=== PATIENT | female | born 1970 | race Caucasian/White ===

== ENCOUNTER 2020-07-29 17:03 | Inpatient (IN) | payer BC ==
[~2020-07-29] VITALS: Ht 167.6 cm; Wt 78.0 kg
[2020-07-29 17:00] VITALS: BP 118/76
[2020-07-29 18:01] VITALS: BP 118/76
[2020-07-29 18:02] VITALS: BP 118/76
[2020-07-29] MEDS: PIPER-TAZ 3.375 GM 50 ML IV SCH (18:37)
[2020-07-29] MEDS: SODIUM CHLORIDE 0.9% 1000ML 1,000 ML IV SCH (18:37)
[2020-07-29 20:00] VITALS: BP 106/59
[2020-07-29] MEDS: ONDANSETRON HCL INJ 2MG/ML 2ML 2 MG/ML VIAL IV PRN (21:20)
[2020-07-29] MEDS: MORPHINE SULFATE INJ 4 MG/ML INJ 1ML IV PRN (21:20)
[2020-07-29] MEDS: PANTOPRAZOLE 40 MG 10ML VIAL IV SCH (22:00)
[2020-07-29 22:32] VITALS: BP 106/59
[2020-07-30] VITALS (7 sets, daily range): BP systolic 93–106; BP diastolic 58–68
[2020-07-30] MEDS: SODIUM CHLORIDE 0.9% 1000ML 1,000 ML IV SCH ×6 (00:20→23:01)
[2020-07-30] MEDS: PIPER-TAZ 3.375 GM 50 ML IV SCH ×4 (00:20→17:11)
[2020-07-30 05:35] LABS: BASOPHILS % 0.3 % (0.0-1.0); EOSINOPHILS % 0.3 % (0.0-6.0); HEMATOCRIT 39.9 % (34.2-44.1); HEMOGLOBIN 12.8 g/dL (12.0-16.0); LYMPHOCYTES # (AUTO) 1.1 (1.0-3.2); LYMPHOCYTES % 12.5 % (18.0-39.1); MEAN CORPUSCULAR HEMOGLOBIN 31.1 pg (28-32); MEAN CORPUSCULAR HGB CONC 32.1 g/dL (31-35); MEAN CORPUSCULAR VOLUME 96.8 fL (81-99); MONOCYTES # (AUTO) 0.7 (0.2-0.8); MONOCYTES % 8.2 % (4.4-11.3); NEUTROPHILS # (AUTO) 6.8 (2.1-6.9); NEUTROPHILS % 78.5 % (38.7-80.0); PLATELET COUNT 242 x10e3/uL (140-360); RED BLOOD COUNT 4.12 x10e6/uL (3.6-5.1)
[2020-07-30 06:08] LABS: ALANINE AMINOTRANSFERASE 45 IU/L (0-55); ALBUMIN 3.5 g/dL (3.5-5.0); ALBUMIN/GLOBULIN RATIO 1.8 (0.8-2.0); ALKALINE PHOSPHATASE 54 IU/L (40-150); ANION GAP 8.2 mmol/L (8-16); BLOOD UREA NITROGEN 8 mg/dL (7-26); BUN/CREATININE RATIO 9 (6-25); CALCIUM 7.8 mg/dL (8.4-10.2); CARBON DIOXIDE 24 mmol/L (22-29); CHLORIDE 109 mmol/L (98-107); CREATININE, SERUM 0.85 mg/dL (0.57-1.11); EST GLOMERULAR FILTRATION RATE > 60 ML/MIN (60-); GLUCOSE 97 mg/dL (74-118); POTASSIUM 4.2 mmol/L (3.5-5.1); SODIUM 137 mmol/L (136-145)
[2020-07-30] MEDS: ONDANSETRON HCL INJ 2MG/ML 2ML 2 MG/ML VIAL IV PRN ×3 (06:40→17:11)
[2020-07-30] MEDS: MORPHINE SULFATE INJ 4 MG/ML INJ 1ML IV PRN ×3 (06:40→17:11)
[2020-07-30] MEDS: PANTOPRAZOLE 40 MG 10ML VIAL IV SCH (08:07)
[2020-07-30] MEDS ORDERED: GADOBENATE DIMEGLUMINE 1 ML IV ONE (09:55)
[2020-07-30] MEDS ORDERED: SODIUM CHLORIDE 0.9% 50ML 50 ML ONE (09:55)
[2020-07-30] MEDS ORDERED: ACETAMINOPHEN 325 MG TAB PO ONE (19:58)
[2020-07-31] VITALS (9 sets, daily range): BP systolic 94–112; BP diastolic 58–69
[2020-07-31] MEDS: PIPER-TAZ 3.375 GM 50 ML IV SCH ×5 (00:03→23:46)
[2020-07-31] MEDS: SODIUM CHLORIDE 0.9% 1000ML 1,000 ML IV SCH ×4 (04:30→23:54)
[2020-07-31 05:06] LABS: BASOPHILS % 0.3 % (0.0-1.0); EOSINOPHILS % 0.2 % (0.0-6.0); HEMATOCRIT 36.9 % (34.2-44.1); LYMPHOCYTES # (AUTO) 0.7 (1.0-3.2); LYMPHOCYTES % 5.4 % (18.0-39.1); MEAN CORPUSCULAR HEMOGLOBIN 31.9 pg (28-32); MEAN CORPUSCULAR HGB CONC 32.5 g/dL (31-35); MEAN CORPUSCULAR VOLUME 98.1 fL (81-99); MONOCYTES % 7.6 % (4.4-11.3); NEUTROPHILS # (AUTO) 11.5 (2.1-6.9); NEUTROPHILS % 85.9 % (38.7-80.0); PLATELET COUNT 196 x10e3/uL (140-360); RED BLOOD COUNT 3.76 x10e6/uL (3.6-5.1)
[2020-07-31 05:26] LABS: ALANINE AMINOTRANSFERASE 35 IU/L (0-55); ALBUMIN 3.3 g/dL (3.5-5.0); ALBUMIN/GLOBULIN RATIO 1.4 (0.8-2.0); ALKALINE PHOSPHATASE 60 IU/L (40-150); ANION GAP 11.7 mmol/L (8-16); BLOOD UREA NITROGEN 5 mg/dL (7-26); BUN/CREATININE RATIO 6 (6-25); CALCIUM 7.6 mg/dL (8.4-10.2); CARBON DIOXIDE 18 mmol/L (22-29); CHLORIDE 110 mmol/L (98-107); CHOL/HDL RATIO 2.3 (3.0-3.6); CHOLESTEROL 124 MD/DL (0-199); CREATININE, SERUM 0.77 mg/dL (0.57-1.11); EST GLOMERULAR FILTRATION RATE > 60 ML/MIN (60-); GLUCOSE 72 mg/dL (74-118); HDL CHOLESTEROL 54 MG/DL (40-60); LIPASE 350 U/L (8-78); POTASSIUM 3.7 mmol/L (3.5-5.1); SODIUM 136 mmol/L (136-145)
[2020-07-31 05:43] LABS: LDL CHOLESTEROL 57 MG/DL (60-130); TRIGLYCERIDES 63 MG/DL (0-149)
[2020-07-31] MEDS ORDERED: ACETAMINOPHEN 325 MG TAB PO ONE (07:30)
[2020-07-31] MEDS: PANTOPRAZOLE 40 MG 10ML VIAL IV SCH (08:53)
[2020-07-31] MEDS: HYDROMORPHONE 1MG/1ML INJ IV PRN ×2 (11:11→14:37)
[2020-07-31] MEDS: ONDANSETRON HCL INJ 2MG/ML 2ML 2 MG/ML VIAL IV PRN ×2 (11:11→14:38)
[2020-07-31] MEDS ORDERED: PROPOFOL IV EMULSION 10 MG/ML 20 ML VIAL ONE (12:45)
[2020-07-31] MEDS ORDERED: GLYCOPYRROLATE INJ 0.2 MG/ML VIAL ONE (12:45)
[2020-07-31] MEDS ORDERED: DEXAMETHASONE SOD PHOS INJ 4 MG/ML VIAL ONE (12:45)
[2020-07-31] MEDS ORDERED: LIDOCAINE HCL 2% LOCAL INJ 5 ML SDV VIAL INJ ONE (12:45)
[2020-07-31] MEDS ORDERED: SEVOFLURANE INHAL SOLN 250 ML PEN BTL ONE (12:45)
[2020-07-31] MEDS ORDERED: ONDANSETRON HCL INJ 2MG/ML 2ML 2 MG/ML VIAL ONE (12:45)
[2020-07-31] MEDS ORDERED: KETOROLAC TROMETHAMINE 30 MG/ML VIAL ONE (12:45)
[2020-07-31] MEDS ORDERED: ROCURONIUM BROMIDE 10 MG/ML 5ML VIAL IV ONE (12:45)
[2020-07-31] MEDS ORDERED: NEOSTIGMINE 1 MG/ML 10ML VIAL ONE (12:45)
[2020-07-31] MEDS ORDERED: FENTANYL CITRATE/PF 100MCG/2 ML INJ ONE (13:47)
[2020-07-31] MEDS ORDERED: MIDAZOLAM HCL 2 MG/2 ML VIAL ONE (13:47)
[2020-07-31] MEDS ORDERED: IOPAMIDOL 300MG/ML 50ML INFUS..BTL IV ONE (16:26)
[2020-07-31] MEDS ORDERED: BUPIVACAINE 0.25% 30ML SDV INJ ONE (16:26)
[2020-08-01] VITALS (7 sets, daily range): BP systolic 94–108; BP diastolic 61–69
[2020-08-01] MEDS: SODIUM CHLORIDE 0.9% 1000ML 1,000 ML IV SCH ×2 (04:31→15:49)
[2020-08-01] MEDS: PIPER-TAZ 3.375 GM 50 ML IV SCH (05:43)
[2020-08-01 06:54] LABS: BASOPHILS % 0.1 % (0.0-1.0); HEMATOCRIT 35.3 % (34.2-44.1); HEMOGLOBIN 11.3 g/dL (12.0-16.0); LYMPHOCYTES # (AUTO) 0.7 (1.0-3.2); LYMPHOCYTES % 4.3 % (18.0-39.1); MEAN CORPUSCULAR HEMOGLOBIN 30.6 pg (28-32); MEAN CORPUSCULAR VOLUME 95.7 fL (81-99); MONOCYTES # (AUTO) 0.8 (0.2-0.8); MONOCYTES % 5.3 % (4.4-11.3); NEUTROPHILS # (AUTO) 13.9 (2.1-6.9); NEUTROPHILS % 89.5 % (38.7-80.0); PLATELET COUNT 197 x10e3/uL (140-360); RED BLOOD COUNT 3.69 x10e6/uL (3.6-5.1); RED CELL DISTRIBUTION WIDTH 12.6 % (11.7-14.4)
[2020-08-01 07:24] LABS: ALANINE AMINOTRANSFERASE 40 IU/L (0-55); ALBUMIN 3.2 g/dL (3.5-5.0); ALBUMIN/GLOBULIN RATIO 1.4 (0.8-2.0); ALKALINE PHOSPHATASE 117 IU/L (40-150); AMYLASE 284 U/L (25-125); ANION GAP 13.3 mmol/L (8-16); BLOOD UREA NITROGEN 6 mg/dL (7-26); BUN/CREATININE RATIO 8 (6-25); CALCIUM 7.9 mg/dL (8.4-10.2); CARBON DIOXIDE 17 mmol/L (22-29); CHLORIDE 111 mmol/L (98-107); CHOL/HDL RATIO 2.6 (3.0-3.6); CHOLESTEROL 120 MD/DL (0-199); CREATININE, SERUM 0.75 mg/dL (0.57-1.11); EST GLOMERULAR FILTRATION RATE > 60 ML/MIN (60-); GLUCOSE 92 mg/dL (74-118); HDL CHOLESTEROL 46 MG/DL (40-60); LDL CHOLESTEROL 63 MG/DL (60-130); LIPASE 64 U/L (8-78); POTASSIUM 4.3 mmol/L (3.5-5.1); SODIUM 137 mmol/L (136-145); TRIGLYCERIDES 54 MG/DL (0-149)
[2020-08-01] MEDS: PANTOPRAZOLE 40 MG 10ML VIAL IV SCH (09:22)
[2020-08-01] MEDS: MEROPENEM 1GM 100 ML IV SCH ×2 (10:25→17:51)
[2020-08-01] MEDS: HYDROCODONE/APAP 7.5MG-325MG 1 EA TAB PO PRN ×3 (11:52→22:20)
[2020-08-01] MEDS: SENNOSIDES 8.6 MG TAB PO SCH (17:51)
[2020-08-02] VITALS (9 sets, daily range): BP systolic 93–145; BP diastolic 56–73
[2020-08-02] MEDS: ONDANSETRON HCL INJ 2MG/ML 2ML 2 MG/ML VIAL IV PRN (00:38)
[2020-08-02] MEDS: HYDROMORPHONE 1MG/1ML INJ IV PRN (00:38)
[2020-08-02] MEDS: MEROPENEM 1GM 100 ML IV SCH ×3 (02:40→17:04)
[2020-08-02] MEDS: KETOROLAC TROMETHAMINE 30 MG/ML VIAL IV PRN ×4 (02:40→21:42)
[2020-08-02] MEDS: SODIUM CHLORIDE 0.9% 1000ML 1,000 ML IV SCH ×4 (05:47→20:22)
[2020-08-02 06:02] LABS: BASOPHILS % 0.2 % (0.0-1.0); EOSINOPHILS # (AUTO) 0.1 (0.0-0.4); EOSINOPHILS % 0.7 % (0.0-6.0); HEMATOCRIT 34.5 % (34.2-44.1); LYMPHOCYTES # (AUTO) 1.1 (1.0-3.2); LYMPHOCYTES % 7.9 % (18.0-39.1); MEAN CORPUSCULAR HEMOGLOBIN 30.6 pg (28-32); MEAN CORPUSCULAR HGB CONC 31.9 g/dL (31-35); MEAN CORPUSCULAR VOLUME 96.1 fL (81-99); MONOCYTES # (AUTO) 1.5 (0.2-0.8); MONOCYTES % 10.3 % (4.4-11.3); NEUTROPHILS # (AUTO) 11.6 (2.1-6.9); NEUTROPHILS % 80.2 % (38.7-80.0); PLATELET COUNT 212 x10e3/uL (140-360); RED BLOOD COUNT 3.59 x10e6/uL (3.6-5.1)
[2020-08-02 07:50] LABS: ALANINE AMINOTRANSFERASE 30 IU/L (0-55); ALBUMIN/GLOBULIN RATIO 1.4 (0.8-2.0); ALKALINE PHOSPHATASE 94 IU/L (40-150); AMYLASE 187 U/L (25-125); ANION GAP 10.8 mmol/L (8-16); BLOOD UREA NITROGEN 5 mg/dL (7-26); BUN/CREATININE RATIO 7 (6-25); CALCIUM 7.8 mg/dL (8.4-10.2); CARBON DIOXIDE 21 mmol/L (22-29); CHLORIDE 109 mmol/L (98-107); EST GLOMERULAR FILTRATION RATE > 60 ML/MIN (60-); GLUCOSE 85 mg/dL (74-118); LIPASE 123 U/L (8-78); POTASSIUM 3.8 mmol/L (3.5-5.1); SODIUM 137 mmol/L (136-145)
[2020-08-02] MEDS: SENNOSIDES 8.6 MG TAB PO SCH ×2 (08:40→17:00)
[2020-08-02] MEDS: PANTOPRAZOLE 40 MG 10ML VIAL IV SCH (09:06)
[2020-08-02] MEDS ORDERED: ACETAMINOPHEN 1000 MG/100 ML IV PRN (09:30)
[2020-08-02] MEDS ORDERED: ACETAMINOPHEN 325 MG TAB PO PRN (09:30)
[2020-08-02] MEDS ORDERED: IOPAMIDOL 370 MG/ML 200 ML INFUS..BTL INJ ONE (09:53)
[2020-08-02] MEDS: ENOXAPARIN SOD INJ 40 MG/0.4 ML SYR SC SCH (17:00)
[2020-08-02] MEDS ORDERED: FUROSEMIDE INJ 10 MG/ML 2 ML VIAL IV ONE (22:00)
[2020-08-03] VITALS: BP 106/68
[2020-08-03] MEDS: SODIUM CHLORIDE 0.9% 1000ML 1,000 ML IV SCH (02:00)
[2020-08-03] MEDS: MEROPENEM 1GM 100 ML IV SCH ×3 (02:18→18:00)
[2020-08-03] MEDS: KETOROLAC TROMETHAMINE 30 MG/ML VIAL IV PRN ×2 (03:44→09:54)
[2020-08-03 04:00] VITALS: BP 105/62
[2020-08-03 05:47] LABS: BASOPHILS % 0.3 % (0.0-1.0); EOSINOPHILS # (AUTO) 0.2 (0.0-0.4); EOSINOPHILS % 1.3 % (0.0-6.0); HEMATOCRIT 31.7 % (34.2-44.1); HEMOGLOBIN 10.2 g/dL (12.0-16.0); LYMPHOCYTES # (AUTO) 1.2 (1.0-3.2); LYMPHOCYTES % 9.8 % (18.0-39.1); MEAN CORPUSCULAR HEMOGLOBIN 30.5 pg (28-32); MEAN CORPUSCULAR HGB CONC 32.2 g/dL (31-35); MEAN CORPUSCULAR VOLUME 94.9 fL (81-99); MONOCYTES # (AUTO) 1.2 (0.2-0.8); MONOCYTES % 9.9 % (4.4-11.3); NEUTROPHILS # (AUTO) 9.2 (2.1-6.9); NEUTROPHILS % 78.2 % (38.7-80.0); PLATELET COUNT 198 x10e3/uL (140-360); RED BLOOD COUNT 3.34 x10e6/uL (3.6-5.1); RED CELL DISTRIBUTION WIDTH 12.9 % (11.7-14.4)
[2020-08-03 06:20] LABS: ALANINE AMINOTRANSFERASE 26 IU/L (0-55); ALBUMIN 2.8 g/dL (3.5-5.0); ALBUMIN/GLOBULIN RATIO 1.3 (0.8-2.0); ALKALINE PHOSPHATASE 93 IU/L (40-150); ANION GAP 11.1 mmol/L (8-16); BLOOD UREA NITROGEN < 5 mg/dL (7-26); CALCIUM 7.8 mg/dL (8.4-10.2); CARBON DIOXIDE 21 mmol/L (22-29); CHLORIDE 108 mmol/L (98-107); CREATININE, SERUM 0.64 mg/dL (0.57-1.11); EST GLOMERULAR FILTRATION RATE > 60 ML/MIN (60-); GLUCOSE 86 mg/dL (74-118); POTASSIUM 3.1 mmol/L (3.5-5.1); SODIUM 137 mmol/L (136-145)
[2020-08-03 06:21] LABS: BUN/CREATININE RATIO 8 (6-25)
[2020-08-03 07:09] LABS: MAGNESIUM 1.7 MG/DL (1.3-2.1); PHOSPHORUS 1.9 MG/DL (2.3-4.7)
[2020-08-03 07:26] VITALS: BP 105/64
[2020-08-03] MEDS ORDERED: MAGNESIUM SULFATE 2GM/50ML IV ONE (08:45)
[2020-08-03] MEDS: SENNOSIDES 8.6 MG TAB PO SCH ×2 (09:00→17:00)
[2020-08-03] MEDS ORDERED: MAGNESIUM SULFATE 2GM/50ML 50 ML IV ONE (09:00)
[2020-08-03] MEDS: PANTOPRAZOLE 40 MG 10ML VIAL IV SCH (09:17)
[2020-08-03 09:30] VITALS: BP 105/64
[2020-08-03] MEDS: POTASSIUM CHLORIDE 10MEQ EA PO SCH ×3 (10:12→13:25)
[2020-08-03 10:59] VITALS: BP 114/72
[2020-08-03] MEDS ORDERED: POTASSIUM PHOSPHATE 20 MM in SODIUM CHLORIDE 0.9% 250ML 250 ML IV ONE (11:00)
[2020-08-03 14:53] VITALS: BP 117/75
[2020-08-03] MEDS ORDERED: AMYLAS/CELLU/LIPAS/PROTEA/BILE 12,000 UNIT CAP PO SCH (15:00)
[2020-08-03] MEDS: ENOXAPARIN SOD INJ 40 MG/0.4 ML SYR SC SCH (17:00)
[2020-08-04] MEDS ORDERED: TYLENOL # 31 EA PO (08:00)
== END 2020-08-03 18:52 | disposition home or self-care (01) | DRG 418 ==
LOC: MED/SURG 17:03
PROVIDERS: ADMIT Internal Medicine; ATTEND Internal Medicine
PROC: BF131ZZ Fluoroscopy of Gallbladder and Bile Ducts using Low Osmolar Contrast (ICD-10-PCS; 2020-07-31)
PROC: 0FT44ZZ Resection of Gallbladder, Percutaneous Endoscopic Approach (ICD-10-PCS; principal; 2020-07-31 16:26)
DX: K85.10 Biliary acute pancreatitis without necrosis or infection (principal); K80.00 Calculus of gallbladder with acute cholecystitis without obstruction; R18.8 Other ascites; J90 Pleural effusion, not elsewhere classified; Z11.59 Encounter for screening for other viral diseases
CPT/HCPCS: 36415; 74177; 74183; 74300; 80053; 80061; 81025; 82150; 83605; 83690; 83735; 84100; 85025; 88304; 96361; C1766; J1100; J1170; J1650; J1885; J1940; J2001; J2250; J2270; J2405; J2543; J2710; J3010; J3475; J7030; J7050; Q9967; U0002